=== PATIENT | male | born 1950 | race American Indian/Alaskan Native ===

== ENCOUNTER 2020-06-06 15:30 | Observation (INO) | payer MEDICARE ==
--- NOTE | 2020-06-06 15:59 | Event Note ---
ED Screening Note Date of service: 06/06/20 Time: 15:56 ED Screening Note: 79-year-old -[place]ian male with a past medical history of arthritis and BPH presents to the emergency room for a 1 week history of lower lip trembling and left hand trembling. Patient states he was seen at his dentist yesterday and they told him he may need to have that checked out. Patient states he called his primary care doctor who told him go to the nearest emergency room. This initial assessment/diagnostic orders/clinical plan/treatment(s) is/are subject to change based on patients health status, clinical progression and re- assessment by fellow clinical providers in the ED. Further treatment and workup at subsequent clinical providers discretion. Patient/guardian urged not to elope from the ED as their condition may be serious if not clinically assessed and managed. Initial orders include:
--- NOTE | 2020-06-06 16:54 | Cat Scan Report ---
CT head/brain wo con INDICATION / CLINICAL INFORMATION: 69 years Male; Neurological deficits. TECHNIQUE: Routine CT head without contrast. All CT scans at this location are performed using CT dos e reduction for ALARA by means of automated exposure control. COMPARISON: None. FINDINGS: BRAIN / INTRACRANIAL CONTENTS: No acute hemorrhage, mass effect, midline shift, hydrocephalus, or acu te, large territorial infarct. Mild cerebral and cerebellar atrophy. No significant white matter abno rmality seen. CRANIOCERVICAL JUNCTION: No significant abnormality. ORBITS: No significant abnormality of visualized orbits. SINUSES / MASTOIDS: Minimal mucosal thickening seen in the mastoids. ADDITIONAL FINDINGS: None. IMPRESSION: 1. No focal mass, hemorrhage, hydrocephalus, or acute, large territorial infarct. Signer Name: Conrad Ann MD, III Signed: 06/06/2020 4:50 PM Workstation Name: [id number]
[2020-06-06 17:00] LABS: Basophils % (Auto) 0.6 % (0.0-1.8); Eosinophils # (Auto) 0.1 K/mm3 (0.0-0.4); Eosinophils % (Auto) 2.1 % (0.0-4.3); Hemoglobin 15.5 gm/dl (11.8-15.2); Lymphocytes % (Auto) 31.7 % (13.4-35.0); Mean Corpuscular HGB Conc 34 % (32-34); Mean Corpuscular Volume 91 fl (84-94); Monocytes # (Auto) 0.6 K/mm3 (0.0-0.8); Monocytes % (Auto) 9.4 % (0.0-7.3); Red Blood Count 5.08 M/mm3 (3.65-5.03)
[2020-06-06 17:03] LABS: Platelet Count 131 K/mm3 (140-440)
[2020-06-06 17:16] LABS: INR 0.98 (0.87-1.13)
[2020-06-06 17:17] LABS: Partial Thromboplastin Time 30.3 Sec. (24.2-36.6)
[2020-06-06 20:46] LABS: Bilirubin,Urine NEG (Negative); Blood,Urine NEG (Negative); Color,Urine Straw (Yellow); Protein,Urine <15 mg/dL mg/dL (Negative); Urobilinogen,Urine < 2.0 mg/dL (<2.0); WBC,Urine < 1.0 /HPF (0.0-6.0)
--- NOTE | 2020-06-07 00:27 | Emergency Department Report ---
ED Neuro Deficit HPI - General Chief Complaint: Neuro Symptoms/Deficit Stated Complaint: POSS CVA Time Seen by Provider: 06/07/20 00:24 Source: patient Mode of arrival: Ambulatory Limitations: No Limitations - History of Present Illness Initial Comments: Patient is a 69-year-old male that presents emergency room with complaints of left-sided facial droop, left-sided weakness, abnormal gait and balance issues, left arm twitching and left facial twitching. Patient states his symptoms started 2 days ago. Patient states he saw his primary care yesterday morning and his primary care recommended he come to the hospital to be evaluated for stroke. Patient denies chest pain or shortness of breath. Patient states that his left-sided facial droop and left-sided weakness have improved. Patient states that his facial twitching and left arm twitching and balance issues have continued. Patient states that his symptoms are better with rest. Patient states his symptoms are worse with exertion. Patient denies recent travel. Patient denies recent international travel. Patient denies exposure to the novel coronavirus. Patient denies sick contacts. Patient denies fever and chills. Patient denies cough. Patient denies diarrhea. Patient denies coming in contact with anybody with symptoms of the novel coronavirus. -: Sudden - Related Data Allergies/Adverse Reactions: Allergies Allergy/AdvReac Type Severity Reaction Status Date / Time No Known Allergies Allergy Unverified 06/06/20 15:36 ED Review of Systems ROS: Stated complaint: POSS CVA Other details as noted in HPI Constitutional: weakness. denies: chills, fever Eyes: denies: eye pain, eye discharge, vision change ENT: denies: ear pain, throat pain Respiratory: denies: cough, shortness of breath, wheezing Cardiovascular: denies: chest pain, palpitations Endocrine: no symptoms reported Gastrointestinal: denies: abdominal pain, nausea, diarrhea Genitourinary: denies: urgency, dysuria Musculoskeletal: denies: back pain, joint swelling, arthralgia Skin: denies: rash, lesions Neurological: as per HPI, weakness, abnormal gait. denies: headache, paresthesias Psychiatric: denies: anxiety, depression Hematological/Lymphatic: denies: easy bleeding, easy bruising ED Past Medical Hx - Past Medical History Previous Medical History?: Yes Hx Arthritis: Yes Additional medical history: BPH - Surgical History Past Surgical History?: No - Family History Family history: no significant - Social History Smoking Status: Never Smoker Substance Use Type: None ED Neuro Physical Exam - General Limitations: No Limitations General appearance: alert, in no apparent distress Suspected Stroke: No - Head Head exam: Present: atraumatic, normocephalic - Eye Eye exam: Present: normal appearance - ENT ENT exam: Present: mucous membranes moist - Neck Neck exam: Present: normal inspection - Respiratory Respiratory exam: Present: normal lung sounds bilaterally. Absent: respiratory distress - Cardiovascular Cardiovascular Exam: Present: regular rate, normal rhythm. Absent: systolic murmur, diastolic murmur, rubs, gallop - GI/Abdominal GI/Abdominal exam: Present: soft, normal bowel sounds - Rectal Rectal exam: Present: deferred - Extremities Exam Extremities exam: Present: normal inspection - Back Exam Back exam: Present: normal inspection - Neurological Exam Neurological exam: Present: alert, oriented X3 - NIHSS Assessment Interval: Baseline 1a. Level of Consciousness: alert/keenly responsive - Psychiatric Psychiatric exam: Present: normal affect, normal mood - Skin Skin exam: Present: warm, dry, intact, normal color. Absent: rash ED Course Vital Signs 06/06/20 15:38 Temperature 98.1 F Pulse Rate 80 Respiratory 18 Rate Blood Pressure 137/74 [Right] O2 Sat by Pulse 98 Oximetry - Reevaluation(s) Reevaluation #1: I discussed all results with patient. I discussed plan of care with patient. Patient agrees with plan of care and admission. Patient to be admitted to the hospitalist service. 06/07/20 00:34 - Consultations Consultation #1: I discussed case with neurology and neurology recommends a routine admission and does not recommend further imaging. 06/07/20 00:25 I discussed the case with Dr. Perera. Dr. Perera recommends admission and MRI in the morning And stroke work-up. 06/07/20 01:39 Consultation #2: Hospitalist consulted for admission. Hospitalist to admit patient. 06/07/20 00:35 - Lab Data Result diagrams: 06/06/20 16:26 Lab Results 06/06/20 06/06/20 06/06/20 Range/Units 16:26 16:26 Unknown WBC 6.4 (4.5-11.0) K/mm3 RBC 5.08 H (3.65-5.03) M/mm3 Hgb 15.5 H (11.8-15.2) gm/dl Hct 46.0 H (35.5-45.6) % MCV 91 (84-94) fl MCH 30 (28-32) pg MCHC 34 (32-34) % RDW 14.0 (13.2-15.2) % Plt Count 131 L (140-440) K/mm3 Lymph % (Auto) 31.7 (13.4-35.0) % [place] % (Auto) 9.4 H (0.0-7.3) % Eos % (Auto) 2.1 (0.0-4.3) % Baso % (Auto) 0.6 (0.0-1.8) % Lymph # (Auto) 2.0 (1.2-5.4) K/mm3 [place] # (Auto) 0.6 (0.0-0.8) K/mm3 Eos # (Auto) 0.1 (0.0-0.4) K/mm3 Baso # (Auto) 0.0 (0.0-0.1) K/mm3 Seg Neutrophils % 56.2 (40.0-70.0) % Seg Neutrophils # 3.6 (1.8-7.7) K/mm3 PT 12.8 (12.2-14.9) Sec. INR 0.98 (0.87-1.13) APTT 30.3 (24.2-36.6) Sec. Urine Color Straw (Yellow) Urine Turbidity Clear (Clear) Urine pH 6.0 (5.0-7.0) Ur Specific [place] 1.009 (1.003-1.030) Urine Protein <15 mg/dl (Negative) mg/dL Urine Glucose (UA) Neg (Negative) mg/dL Urine Ketones Neg (Negative) mg/dL Urine Blood Neg (Negative) Urine Nitrite Neg (Negative) Urine Bilirubin Neg (Negative) Urine Urobilinogen < 2.0 (<2.0) mg/dL Ur Leukocyte Esterase Neg (Negative) Urine WBC (Auto) < 1.0 (0.0-6.0) /HPF Urine RBC (Auto) 2.0 (0.0-6.0) /HPF - Radiology Data Radiology results: report reviewed CT head/brain wo con INDICATION / CLINICAL INFORMATION: 69 years Male; Neurological deficits. TECHNIQUE: Routine CT head without contrast. All CT scans at this location are performed using CT dose reduction for ALARA by means of automated exposure control. COMPARISON: None. FINDINGS: BRAIN / INTRACRANIAL CONTENTS: No acute hemorrhage, mass effect, midline shift, hydrocephalus, or acute, large territorial infarct. Mild cerebral and cerebellar atrophy. No significant white matter abnormality seen. CRANIOCERVICAL JUNCTION: No significant abnormality. ORBITS: No significant abnormality of visualized orbits. SINUSES / MASTOIDS: Minimal mucosal thickening seen in the mastoids. ADDITIONAL FINDINGS: None. IMPRESSION: 1. No focal mass, hemorrhage, hydrocephalus, or acute, large territorial infarct. - Medical Decision Making Patient is a 69-year-old male that presents emergency room with complaints of abnormal gait, balance issue, left-sided weakness and left-sided facial droop and left hand twitch. Patient states that his left-sided weakness has improved. Patient states his symptoms started 2 days ago. After initial evaluation, I discussed the case with our neurologist and they recommended a routine admission and no other emergency room imaging. Patient had labs done which were essentially unremarkable. Patient head CT was negative. Patient admitted to the hospital service for further evaluation treatment. - Differential Diagnosis CVA, weakness, TIA, gait problems, tremors, electrolyte imbalance Critical Care Time: Yes Critical care time in (mins) excluding proc time.: 35 Critical care attestation.: If time is entered above; I have spent that time in minutes in the direct care of this critically ill patient, excluding procedure time. Critical Care Time: 35 minutes ED Disposition Clinical Impression: Abnormal gait, Balance problem, Left-sided weakness Disposition: 09 OP ADMIT IP TO THIS HOSP Is pt being admited?: No Does the pt Need Aspirin: No Condition: Stable Time of Disposition: 00:35
[2020-06-07] MEDS ORDERED: ASPIRIN 325 MG TAB PO ONE (00:37)
[2020-06-07] MEDS ORDERED: MAGNESIUM HYDROXIDE (MOM) ORAL LIQD UDC PO PRN ×2 (00:44)
[2020-06-07] MEDS ORDERED: ACETAMINOPHEN 325 MG TAB PO PRN ×2 (00:44)
[2020-06-07] MEDS ORDERED: METOCLOPRAMIDE 10 MG TAB PO PRN (00:44)
[2020-06-07] MEDS ORDERED: PROMETHAZINE 25 MG RECT SUPP PR PRN (00:44)
[2020-06-07] MEDS ORDERED: MORPHINE 2 MG/1 ML INJ IV PRN (00:44)
[2020-06-07] MEDS ORDERED: ONDANSETRON 4 MG/2 ML INJ IV PRN ×2 (00:44)
--- NOTE | 2020-06-07 01:02 | History and Physical Report ---
History of Present Illness Date of examination: 06/07/20 Date of admission: 06/07/2020 Chief complaint: Left Sided Weakness. History of present illness: 69-year-old -[place]inese male with known history of BPH presented to the emergency room today complaining of left-sided facial droop, left-sided weakness, numbness, twitching and tingling in the left upper extremity which has been ongoing over the past 2 days. He was seen by his primary care physician about 24 hours ago and he was encouraged to report to the emergency room for further evaluation. Indicates his left sided facial droop and left-sided weakness has improved. He continues to have some twitching in his left upper extremity and difficulty with his balance. Patient denies any headache or dizziness, no nausea vomiting, no fever or chills, no chest pain or shortness of breath, no hematuria or dysuria. Patient denies any sick contacts and no recent travel. Patient denies any contact with anyone with COVID-19. Work-up in the emergency room today CT scan of the head was unremarkable. Neurologist on-call was consulted by the ER physician and recommendation was to work patient up for possible CVA. Past History Past Medical History: arthritis, other (BPH) Past Surgical History: No surgical history Social history: no significant social history Family history: no significant family history Medications and Allergies Allergies Allergy/AdvReac Type Severity Reaction Status Date / Time No Known Allergies Allergy Unverified 06/06/20 15:36 Active Meds: Active Medications Acetaminophen (Acetaminophen 325 Mg Tab) 650 mg PO Q4H PRN PRN Reason: Pain MILD(1-3)/Fever >100.5/CHAUDHARY Acetaminophen (Acetaminophen 325 Mg Tab) 650 mg PO Q4H PRN PRN Reason: Pain, Mild (1-3) Aspirin (Aspirin 325 Mg Tab) 325 mg PO QDAY FARIDEH Atorvastatin Calcium (Atorvastatin 40 Mg Tab) 40 mg PO QHS FARIDEH Bisacodyl (Bisacodyl 10 Mg Rect Supp) 10 mg [place] QDAY PRN PRN Reason: Constipation Heparin Sodium (Porcine) (Heparin 5,000 Unit/1 Ml Vial) 5,000 unit SUB-Q Q8HR FARIDEH Magnesium Hydroxide (Magnesium Hydroxide (Mom) Oral Liqd Udc) 30 ml PO Q4H PRN PRN Reason: Constipation Magnesium Hydroxide (Magnesium Hydroxide (Mom) Oral Liqd Udc) 30 ml PO Q4H PRN PRN Reason: Constipation Metoclopramide HCl (Metoclopramide 10 Mg Tab) 10 mg PO Q6H PRN PRN Reason: Nausea And Vomiting Morphine Sulfate (Morphine 2 Mg/1 Ml Inj) 2 mg IV Q4H PRN PRN Reason: Pain, Moderate (4-6) Ondansetron HCl (Ondansetron 4 Mg/2 Ml Inj) 4 mg IV Q8H PRN PRN Reason: Nausea And Vomiting Ondansetron HCl (Ondansetron 4 Mg/2 Ml Inj) 4 mg IV Q8H PRN PRN Reason: Nausea And Vomiting Promethazine HCl (Promethazine 25 Mg Rect Supp) 25 mg [place] Q6H PRN PRN Reason: Nausea And Vomiting Sodium Chloride (Sodium Chloride 0.9% 10 Ml Flush Syringe) 10 ml IV BID FARIDEH Sodium Chloride (Sodium Chloride 0.9% 10 Ml Flush Syringe) 10 ml IV PRN PRN PRN Reason: LINE FLUSH Sodium Chloride (Sodium Chloride 0.9% 10 Ml Flush Syringe) 10 ml INJ PRN PRN PRN Reason: LINE FLUSH Review of Systems Constitutional: no fever, no chills Ears, nose, mouth and throat: no nasal congestion, no sore throat Cardiovascular: no chest pain, no palpitations Respiratory: no cough, no shortness of breath Gastrointestinal: no abdominal pain, no nausea, no vomiting, no diarrhea Genitourinary Male: no dysuria, no hematuria, no flank pain Musculoskeletal: no neck pain, no low back pain Integumentary: no rash, no pruritis Neurological: gait dysfunction, no headaches, no confusion Psychiatric: no anxiety, no depression Exam - Constitutional Vitals: Temp Pulse Resp BP Pulse Ox 98.1 F 80 18 137/74 98 06/06/20 15:38 06/06/20 15:38 06/06/20 15:38 06/06/20 15:38 06/06/20 15:38 General appearance: Present: no acute distress, well-nourished, other (No facial asymmetry) - EENT Eyes: Present: PERRL, EOM intact. Absent: scleral icterus ENT: hearing intact, clear oral mucosa, dentition normal - Neck Neck: Present: supple, normal ROM - Respiratory Respiratory effort: normal Respiratory: bilateral: CTA - Cardiovascular Rhythm: regular Heart Sounds: Present: S1 & S2. Absent: gallop, systolic murmur, diastolic murmur, rub - Extremities Extremities: no ischemia, pulses intact, pulses symmetrical, No edema, normal temperature, normal color, Full ROM Peripheral Pulses: within normal limits - Abdominal General gastrointestinal: Present: soft, non-tender, non-distended, normal bowel sounds. Absent: mass - Integumentary Integumentary: Present: clear, warm, dry - Musculoskeletal Musculoskeletal: strength equal bilaterally - Psychiatric Psychiatric: appropriate mood/affect, intact judgment & insight, memory intact, cooperative - Neurologic Neurologic: CNII-XII intact, no focal deficits, moves all extremities Results - Labs CBC & Chem 7: 06/06/20 16:26 Labs: Abnormal lab results 06/06/20 Range/Units 16:26 RBC 5.08 H (3.65-5.03) M/mm3 Hgb 15.5 H (11.8-15.2) gm/dl Hct 46.0 H (35.5-45.6) % Plt Count 131 L (140-440) K/mm3 [place] % (Auto) 9.4 H (0.0-7.3) % Assessment and Plan - Patient Problems (1) Left-sided weakness Current Visit: Yes Status: Acute Plan to address problem: Patient admitted and placed on telemetry. Will place patient on daily aspirin and statin. Patient will be scheduled for MRI of the brain, echocardiogram and carotid Doppler. We will place a consult to neurology for evaluation for possible CVA. We will also place consult to physical therapy for evaluation. (2) DVT prophylaxis Current Visit: Yes Status: Acute Plan to address problem: Patient placed on subcutaneous heparin. (3) Full code status Current Visit: Yes Status: Acute
--- NOTE | 2020-06-07 01:45 | Consultation ---
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 L hand (thumb and 5thdigit shaking when relaxes and posture and apparent left ankle cogwheeling/rigidity. Parkinsonism sign noted (masked facies, somewhat bradykinetic). r/o BG TIA vs stroke vs Parkinsons disease CT HEAD: Showed No Acute Hemorrhage or Acute Core Infarct Metrics: [facility] Notification Time: 06/07/2020 00:16:37 Stamp Time: 06/07/2020 00:17:43 Callback Response Time: 06/07/2020 01:14:47 Telephone Response Time: 06/07/2020 00:23:00 Video Start Time: 06/07/2020 01:17:00 Video End Time: 06/07/2020 01:43:06 Our recommendations are outlined below. Recommendations: Initiate Aspirin 325 MG Daily Imaging Studies: MRI Head Without Contrast Therapies: Physical Therapy, Occupational Therapy, Speech Therapy Assessment When Applicable Other WorkUp: Check CMP Disposition: Neurology Follow Up Recommended Sign Out: Discussed with Emergency Department Provider Chief Complaint: left sided weakness History of Present Illness: Patient is a 70 year old Male. 70 year old man with past medical history of arthritis on her left side (diagnosed via a scan incidentally) and BPH p/w w several days history of left hand (thumb and 5th digit fingers) and left corner of the mouth trembling and difficulty walking and balance. He does not smoke or drink. He uses a cane at times. His mom had trembling in her 90s. Past Medical History: There is NO history of Hypertension There is NO history of Diabetes Mellitus There is NO history of Hyperlipidemia There is NO history of Atrial Fibrillation There is NO history of Coronary Artery Disease There is NO history of Stroke Anticoagulant use: No Antiplatelet use: No Examination: BP(137/74), Pulse(80), Blood Glucose(wbc 15.5 ua neg cmp pending) 1A: Level of Consciousness - Alert; keenly responsive + 0 1B: Ask Month and Age - Both Questions Right + 0 1C: Blink Eyes & Squeeze Hands - Performs Both Tasks + 0 2: Test Horizontal Extraocular Movements - Normal + 0 3: Test Visual Cheng - No Visual Loss + 0 4: Test Facial Palsy (Use Grimace if Obtunded) - Normal symmetry + 0 5A: Test Left Arm Motor Drift - No Drift for 10 Seconds + 0 5B: Test Right Arm Motor Drift - No Drift for 10 Seconds + 0 6A: Test Left Leg Motor Drift - No Drift for 5 Seconds + 0 6B: Test Right Leg Motor Drift - No Drift for 5 Seconds + 0 7: Test Limb Ataxia (FNF/Heel-Hanley) - No Ataxia + 0 8: Test Sensation - Normal; No sensory loss + 0 9: Test Language/Aphasia - Normal; No aphasia + 0 10: Test Dysarthria - Normal + 0 11: Test Extinction/Inattention - No abnormality + 0 NIHSS Score: 0 Due to the immediate potential for life-threatening deterioration due to underlying acute neurologic illness, I spent 26 minutes providing critical care. This time includes time for face to face visit via telemedicine, review of medical records, imaging studies and discussion of findings with providers, the patient and/or family. Dr Caron Mcbride [facility] Case [id number] Past History Past Medical History: arthritis, other (BPH) Past Surgical History: No surgical history Social history: no significant social history Family history: no significant family history Medications and Allergies Allergies Allergy/AdvReac Type Severity Reaction Status Date / Time No Known Allergies Allergy Unverified 06/06/20 15:36 Active Meds: Active Medications Acetaminophen (Acetaminophen 325 Mg Tab) 650 mg PO Q4H PRN PRN Reason: Pain MILD(1-3)/Fever >100.5/CHAUDHARY Aspirin (Aspirin 325 Mg Tab) 325 mg PO QDAY FARIDEH Atorvastatin Calcium (Atorvastatin 40 Mg Tab) 40 mg PO QHS FARIDEH Bisacodyl (Bisacodyl 10 Mg Rect Supp) 10 mg [place] QDAY PRN PRN Reason: Constipation Heparin Sodium (Porcine) (Heparin 5,000 Unit/1 Ml Vial) 5,000 unit SUB-Q Q8HR S [place] Magnesium Hydroxide (Magnesium Hydroxide (Mom) Oral Liqd Udc) 30 ml PO Q4H PRN PRN Reason: Constipation Metoclopramide HCl (Metoclopramide 10 Mg Tab) 10 mg PO Q6H PRN PRN Reason: Nausea And Vomiting Morphine Sulfate (Morphine 2 Mg/1 Ml Inj) 2 mg IV Q4H PRN PRN Reason: Pain, Moderate (4-6) Ondansetron HCl (Ondansetron 4 Mg/2 Ml Inj) 4 mg IV Q8H PRN PRN Reason: Nausea And Vomiting Promethazine HCl (Promethazine 25 Mg Rect Supp) 25 mg [place] Q6H PRN PRN Reason: Nausea And Vomiting Sodium Chloride (Sodium Chloride 0.9% 10 Ml Flush Syringe) 10 ml IV BID FARIDEH Sodium Chloride (Sodium Chloride 0.9% 10 Ml Flush Syringe) 10 ml IV PRN PRN PRN Reason: LINE FLUSH Exam - Constitutional Vitals: Temp Pulse Resp BP Pulse Ox 98.1 F 80 18 137/74 98 06/06/20 15:38 06/06/20 15:38 06/06/20 15:38 06/06/20 15:38 06/06/20 15:38 Results - Labs CBC & Chem 7: 06/06/20 16:26 Labs: Abnormal lab results 06/06/20 Range/Units 16:26 RBC 5.08 H (3.65-5.03) M/mm3 Hgb 15.5 H (11.8-15.2) gm/dl Hct 46.0 H (35.5-45.6) % Plt Count 131 L (140-440) K/mm3 [place] % (Auto) 9.4 H (0.0-7.3) %
[2020-06-07] MEDS: HEPARIN 5,000 UNIT/1 ML VIAL SUB-Q SCH ×3 (06:37→22:30)
--- NOTE | 2020-06-07 09:27 | Magnetic Resonance Report ---
MR brain wo con INDICATION / CLINICAL INFORMATION: 69 years Male; stroke. TECHNIQUE: Multiplanar, multisequence MR images of the brain were obtained. 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 Otherwise, no acute hemorrhage, mass effect, midline shift, hydrocephalus, or acute, large territori al infarct. Mild, diffuse cerebral atrophy. Minimal, nonspecific white matter disease noted. CRANIOCERVICAL JUNCTION: No significant abnormality. VASCULAR FLOW-VOIDS: No significant abnormality. ORBITS: No significant abnormality of visualized orbits. SINUSES / MASTOIDS: Minimal mucosal thickening in the ethmoids and mastoids. ADDITIONAL FINDINGS: None. IMPRESSION: 1. No focal mass, hemorrhage, hydrocephalus, or acute ischemia. Signer Name: Conrad Ann MD, III Signed: 06/07/2020 9:22 AM Workstation Name: [id number]
--- NOTE | 2020-06-07 09:53 | Progress Note ---
Assessment and Plan Assessment and plan: Acute CVA. The patient reported several day history of left-sided hand numbness, left facial droop along with ataxia. CT scan of the head shows no acute hemorrhage or infarct. MRI brain pending. Follow-up echocardiogram. Continue aspirin and statin for secondary prevention. Await PT/OT evaluation. BPH. Osteoarthritis. History Interval history: No new issues overnight. Hospitalist Physical - Constitutional Vitals: Temp Pulse Resp BP Pulse Ox 98.2 F 65 18 116/68 96 06/07/20 07:54 06/07/20 07:54 06/07/20 07:54 06/07/20 07:54 06/07/20 07:54 General appearance: Present: no acute distress, well-nourished, other (No facial asymmetry) - EENT Eyes: Present: PERRL, EOM intact ENT: hearing intact, clear oral mucosa, dentition normal - Neck Neck: Present: supple, normal ROM - Respiratory Respiratory effort: normal Respiratory: bilateral: CTA - Cardiovascular Rhythm: regular Heart Sounds: Present: S1 & S2. Absent: gallop, rub - Extremities Extremities: no ischemia, No edema, Full ROM - Abdominal General gastrointestinal: soft, non-tender, non-distended, normal bowel sounds - Integumentary Integumentary: Present: clear, warm, dry - Neurologic Neurologic: CNII-XII intact, moves all extremities Results - Labs CBC & Chem 7: 06/06/20 16:26 Labs: Laboratory Last Values WBC 6.4 K/mm3 (4.5-11.0) 06/06/20 16:26 RBC 5.08 M/mm3 (3.65-5.03) H 06/06/20 16:26 Hgb 15.5 gm/dl (11.8-15.2) H 06/06/20 16:26 Hct 46.0 % (35.5-45.6) H 06/06/20 16:26 MCV 91 fl (84-94) 06/06/20 16:26 MCH 30 pg (28-32) 06/06/20 16:26 MCHC 34 % (32-34) 06/06/20 16:26 RDW 14.0 % (13.2-15.2) 06/06/20 16:26 Plt Count 131 K/mm3 (140-440) L 06/06/20 16:26 Lymph % (Auto) 31.7 % (13.4-35.0) 06/06/20 16:26 [place] % (Auto) 9.4 % (0.0-7.3) H 06/06/20 16:26 Eos % (Auto) 2.1 % (0.0-4.3) 06/06/20 16:26 Baso % (Auto) 0.6 % (0.0-1.8) 06/06/20 16:26 Lymph # (Auto) 2.0 K/mm3 (1.2-5.4) 06/06/20 16:26 [place] # (Auto) 0.6 K/mm3 (0.0-0.8) 06/06/20 16:26 Eos # (Auto) 0.1 K/mm3 (0.0-0.4) 06/06/20 16:26 Baso # (Auto) 0.0 K/mm3 (0.0-0.1) 06/06/20 16:26 Seg Neutrophils % 56.2 % (40.0-70.0) 06/06/20 16:26 Seg Neutrophils # 3.6 K/mm3 (1.8-7.7) 06/06/20 16:26 PT 12.8 Sec. (12.2-14.9) 06/06/20 16:26 INR 0.98 (0.87-1.13) 06/06/20 16:26 APTT 30.3 Sec. (24.2-36.6) 06/06/20 16:26 Urine Color Straw (Yellow) 06/06/20 Unknown Urine Turbidity Clear (Clear) 06/06/20 Unknown Urine pH 6.0 (5.0-7.0) 06/06/20 Unknown Ur Specific [place] 1.009 (1.003-1.030) 06/06/20 Unknown Urine Protein <15 mg/dl mg/dL (Negative) 06/06/20 Unknown Urine Glucose (UA) Neg mg/dL (Negative) 06/06/20 Unknown Urine Ketones Neg mg/dL (Negative) 06/06/20 Unknown Urine Blood Neg (Negative) 06/06/20 Unknown Urine Nitrite Neg (Negative) 06/06/20 Unknown Urine Bilirubin Neg (Negative) 06/06/20 Unknown Urine Urobilinogen < 2.0 mg/dL (<2.0) 06/06/20 Unknown Ur Leukocyte Esterase Neg (Negative) 06/06/20 Unknown Urine WBC (Auto) < 1.0 /HPF (0.0-6.0) 06/06/20 Unknown Urine RBC (Auto) 2.0 /HPF (0.0-6.0) 06/06/20 Unknown Gonzalez/IV: Voiding Method Urinal IV Catheter Type [left forearm Peripheral IV ] Active Medications - Current Medications Current Medications: Generic Name Dose Route Start Last Admin Trade Name Freq PRN Reason Stop Dose Admin Acetaminophen 650 mg 06/07/20 00:44 Acetaminophen 325 Mg Tab PO Q4H PRN Pain MILD(1-3)/Fever >100.5/CHAUDHARY Aspirin 325 mg 06/07/20 10:00 Aspirin 325 Mg Tab PO QDAY [facility] Atorvastatin Calcium 40 mg 06/07/20 22:00 Atorvastatin 40 Mg Tab PO QHS FARIDEH Bisacodyl 10 mg 06/07/20 00:44 Bisacodyl 10 Mg Rect Supp UT QDAY PRN Constipation Heparin Sodium (Porcine) 5,000 unit 06/07/20 06:00 06/07/20 06:37 Heparin 5,000 Unit/1 Ml Vial SUB-Q 5,000 unit Q8HR [facility] Administration Magnesium Hydroxide 30 ml 06/07/20 00:44 Magnesium Hydroxide (Mom) Oral Liqd Udc PO Q4H PRN Constipation Metoclopramide HCl 10 mg 06/07/20 00:44 Metoclopramide 10 Mg Tab PO Q6H PRN Nausea And Vomiting Morphine Sulfate 2 mg 06/07/20 00:44 Morphine 2 Mg/1 Ml Inj IV Q4H PRN Pain, Moderate (4-6) Ondansetron HCl 4 mg 06/07/20 00:44 Ondansetron 4 Mg/2 Ml Inj IV Q8H PRN Nausea And Vomiting Promethazine HCl 25 mg 06/07/20 00:44 Promethazine 25 Mg Rect Supp UT Q6H PRN Nausea And Vomiting Sodium Chloride 10 ml 06/07/20 10:00 Sodium Chloride 0.9% 10 Ml Flush Syringe IV BID FARIDEH Sodium Chloride 10 ml 06/07/20 00:44 Sodium Chloride 0.9% 10 Ml Flush Syringe IV PRN PRN LINE FLUSH
[2020-06-07] MEDS: ASPIRIN 325 MG TAB PO SCH (10:26)
[2020-06-07] MEDS: TAMSULOSIN 0.4 MG CAP PO SCH (20:47)
[2020-06-07] MEDS: MELOXICAM 7.5 MG TAB PO SCH ×2 (20:47→20:52)
[2020-06-08 03:55] VITALS: BP 114/74
[2020-06-08 05:31] LABS: Basophils # (Auto) 0.1 K/mm3 (0.0-0.1); Basophils % (Auto) 0.8 % (0.0-1.8); Eosinophils # (Auto) 0.2 K/mm3 (0.0-0.4); Eosinophils % (Auto) 3.3 % (0.0-4.3); Hematocrit 46.8 % (35.5-45.6); Hemoglobin 15.5 gm/dl (11.8-15.2); Lymphocytes # (Auto) 2.4 K/mm3 (1.2-5.4); Lymphocytes % (Auto) 37.1 % (13.4-35.0); Mean Corpuscular HGB Conc 33 % (32-34); Mean Corpuscular Volume 91 fl (84-94); Monocytes # (Auto) 0.5 K/mm3 (0.0-0.8); Monocytes % (Auto) 7.8 % (0.0-7.3); Red Blood Count 5.16 M/mm3 (3.65-5.03); Red Cell Distribution Width 13.9 % (13.2-15.2)
[2020-06-08 05:43] LABS: INR 0.99 (0.87-1.13)
[2020-06-08 05:47] LABS: BUN/Creatinine Ratio 19; Blood Urea Nitrogen 19 mg/dL (9-20); Calcium 10.1 mg/dL (8.4-10.2); Chol/HDL Ratio 3.17 %; HDL Cholesterol 58 mg/dL (40-59); Hemolysis Index 20; LDL Cholesterol,Direct 131 mg/dL (50-130)
[2020-06-08 05:54] LABS: Platelet Count 120 K/mm3 (140-440)
[2020-06-08] MEDS: HEPARIN 5,000 UNIT/1 ML VIAL SUB-Q SCH (06:05)
--- NOTE | 2020-06-08 08:30 | Discharge Summary ---
Providers - Providers Date of Admission: 06/07/20 00:37 Date of discharge: 06/08/20 Attending physician: HENRY PORTER 06/07/20 00:44 Consult to Physician [CONS] Routine Comment: Consulting Provider: SCOTTY DELCID Physician Instructions: Reason For Exam: Left sided weakness,facial droop R/O CVA Occupational Therapy Evaluate and Treat [CONS] Routine Comment: Reason For Exam: Neuro deficits Physical Therapy Evaluation and Treat [CONS] Routine Comment: Reason For Exam: Neuro deficits Primary care physician: JACQUARD LOOM CARPET WEAVER Hospitalization Reason for admission: CVA Condition: Stable Hospital course: 69-year-old -[place] male with known history of BPH presented to the emergency room complaining of left-sided facial droop, left-sided weakness, numbness, twitching and tingling in the left upper extremity and ataxia which had been ongoing over the past 2 days [employer]. He was seen by his primary care physician about 24 hours [employer] and he was encouraged to report to the emergency room for further evaluation. After arrival to the emergency room, his left sided facial droop and left-sided weakness had improved. Work-up in the emergency room revealed CT scan of the head that was unremarkable. The patient was seen by the telemetry neurologist who recommend the initiation of aspirin 325 mg daily an MRI of the head without contrast. MRI of the brain revealed no focal mass, hemorrhage, hydrocephalus or acute ischemia. Physical therapy evaluated the patient and felt patient had no needs. Patient will be discharged home on aspirin and statin for secondary prevention. Dedicated discharge time 35 minutes. Disposition: [id number] TO HOME OR SELFCARE Time spent for discharge: 35 - Discharge Diagnoses (1) Abnormal gait Status: Acute (2) Balance problem Status: Acute (3) Left-sided weakness Status: Acute (4) CVA (cerebral vascular accident) Status: Acute Core Measure Documentation - Palliative Care Palliative Care/ Comfort Measures: Not Applicable - Core Measures Any of the following diagnoses?: stroke - Stroke Discharge Requirements Statin for LDL = or >70 mg/dl on DC: Yes Anticoag for atrial fib/atrial flutter: Not Applicable Antithrombotic for ischemic stroke: Yes Exam - Constitutional Vitals: Temp Pulse Resp BP Pulse Ox 97.6 F 64 16 114/74 97 06/08/20 03:32 06/08/20 03:32 06/08/20 03:32 06/08/20 03:32 06/08/20 03:32 General appearance: Present: no acute distress, well-nourished - EENT Eyes: Present: PERRL ENT: hearing intact, clear oral mucosa - Neck Neck: Present: supple, normal ROM - Respiratory Respiratory effort: normal Respiratory: bilateral: CTA - Cardiovascular Heart Sounds: Present: S1 & S2. Absent: rub, click - Extremities Extremities: pulses symmetrical, No edema Peripheral Pulses: within normal limits - Abdominal General gastrointestinal: Present: soft, non-tender, non-distended, normal bowel sounds Male genitourinary: Present: normal - Integumentary Integumentary: Present: clear, warm, dry - Musculoskeletal Musculoskeletal: gait normal, strength equal bilaterally - Psychiatric Psychiatric: appropriate mood/affect, intact judgment & insight - Neurologic Neurologic: CNII-XII intact, moves all extremities Plan Activity: advance as tolerated Weight Bearing Status: Weight Bear as Tolerated Diet: low fat, low cholesterol, low salt Follow up with: RENAY HERMAN MD [Primary Care Provider] - 7 Days SCOTTY DELCID MD [Staff Physician] - 7 Days Prescriptions: Aspirin 325 mg PO QDAY #30 tablet Tamsulosin [Flomax] 1 cap PO QDAY #30 cap AtorvaSTATin [Lipitor] 40 mg PO QHS #30 tablet
[2020-06-08] MEDS: TAMSULOSIN 0.4 MG CAP PO SCH (10:04)
[2020-06-08] MEDS: MELOXICAM 7.5 MG TAB PO SCH (10:04)
[2020-06-08] MEDS: ASPIRIN 325 MG TAB PO SCH (10:04)
== END 2020-06-08 17:45 | disposition home or self-care (01) ==
LOC: ED 15:30 → 4A 06-07 00:37
PROVIDERS: ADMIT Internal Medicine Geriatric Medicine; ATTEND Hospitalist
DX: I63.9 Cerebral infarction, unspecified (principal); G45.9 Transient cerebral ischemic attack, unspecified; G20 Parkinson's disease; M62.81 Muscle weakness (generalized); R26.89 Other abnormalities of gait and mobility; M19.90 Unspecified osteoarthritis, unspecified site; N40.0 Benign prostatic hyperplasia without lower urinary tract symptoms; R29.700 NIHSS score 0; Z79.82 Long term (current) use of aspirin
CPT/HCPCS: 36415; 70450; 70551; 80048; 80061; 81001; 85025; 85610; 85730; 93306; 96372; 97161; 99291; A9270; G0378; J1644

== ENCOUNTER 2020-06-20 16:32 | Emergency (ER) | payer MEDICARE ==
[2020-06-20 17:45] VITALS: BP 156/87
--- NOTE | 2020-06-20 17:46 | Event Note ---
ED Screening Note Date of service: 06/20/20 Time: 17:45 ED Screening Note: Patient complains of 2 episodes of bright red blood in his stools today along with epigastric pain Denies nausea/vomiting/melena hematemesis/coffee-ground emesis History of PUD and recently started on aspirin and meloxicam Patient recently discharged from hospital This initial assessment/diagnostic orders/clinical plan/treatment(s) is/are subject to change based on patients health status, clinical progression and re- assessment by fellow clinical providers in the ED. Further treatment and workup at subsequent clinical providers discretion. Patient/guardian urged not to elope from the ED as their condition may be serious if not clinically assessed and managed. Initial orders include: labs CT
[2020-06-20 18:40] LABS: Bilirubin,Urine NEG (Negative); Blood,Urine NEG (Negative); Color,Urine Straw (Yellow); Protein,Urine <15 mg/dL mg/dL (Negative); Urobilinogen,Urine < 2.0 mg/dL (<2.0); WBC,Urine < 1.0 /HPF (0.0-6.0)
[2020-06-20 19:19] LABS: Basophils # (Auto) 0.1 K/mm3 (0.0-0.1); Basophils % (Auto) 0.5 % (0.0-1.8); Eosinophils # (Auto) 0.2 K/mm3 (0.0-0.4); Eosinophils % (Auto) 1.7 % (0.0-4.3); Hematocrit 45.4 % (35.5-45.6); Hemoglobin 15.1 gm/dl (11.8-15.2); Lymphocytes # (Auto) 2.1 K/mm3 (1.2-5.4); Lymphocytes % (Auto) 18.4 % (13.4-35.0); Mean Corpuscular HGB Conc 33 % (32-34); Mean Corpuscular Volume 92 fl (84-94); Monocytes # (Auto) 0.6 K/mm3 (0.0-0.8); Monocytes % (Auto) 5.6 % (0.0-7.3); Platelet Count 122 K/mm3 (140-440); Red Blood Count 4.96 M/mm3 (3.65-5.03); Red Cell Distribution Width 13.9 % (13.2-15.2)
[2020-06-20 19:44] LABS: INR 0.98 (0.87-1.13); Partial Thromboplastin Time 30.6 Sec. (24.2-36.6)
[2020-06-20 19:45] LABS: Alanine Aminotransferase 25 units/L (7-56); Albumin 4.2 g/dL (3.9-5); BUN/Creatinine Ratio 17; Blood Urea Nitrogen 15 mg/dL (9-20); Hemolysis Index 13
[2020-06-20] MEDS ORDERED: PANTOPRAZOLE 40 MG TAB PO ONE (21:00)
--- NOTE | 2020-06-20 21:00 | Emergency Department Report ---
ED General Adult HPI - General Chief complaint: GI Bleed Stated complaint: BLEEDING INSIDE STOMACH PUI?: No Time Seen by Provider: 06/20/20 17:41 Source: patient Mode of arrival: Ambulatory Limitations: No Limitations - History of Present Illness Initial comments: Mr. Lora is a pleasant 70-year-old -[place]ian male who comes to the ER today complaining of bright red blood in the toilet for the last 3 days. He has a history of GERD but he is not taking his Nexium. He was recently prescribed aspirin 325 for his atherosclerotic risk and meloxicam for his chronic pain. Patient has no epigastric pain he has had no heartburn. Patient states that he really did not have problems like this until the addition of the meloxicam with the 325 mg of aspirin. He states that he does not understand why the pharmacist allowed him to combine these medications. He does endorse hemorrhoids. The blood he reports is a small amount and bright red. He denies any dark tarry foul-smelling stools. He has no tachycardia or hypotension. Patient denies chest pain or shortness of breath. He has no fever or chills Patient denies any abdominal pain. He is asking if he can eat. He is nonill nontoxic appearing on exam. -: Gradual, days(s) Consistency: intermittent Improves with: none Worsens with: none Associated Symptoms: denies other symptoms - Related Data Previous Rx's Medication Instructions Recorded Last Taken Type AtorvaSTATin [Lipitor] 40 mg PO QHS #30 tablet 06/08/20 Unknown Rx Tamsulosin [Flomax] 0.4 mg PO QDAY capsule 06/08/20 Unknown Rx Phenylephrine HCl/[place] Butter 1 each RC DAILY PRN #5 supp.rect 06/20/20 Unknown Rx [Preparation H Suppository] Allergies Allergy/AdvReac Type Severity Reaction Status Date / Time No Known Allergies Allergy Unverified 06/06/20 15:36 ED Review of Systems ROS: Stated complaint: BLEEDING INSIDE STOMACH Other details as noted in HPI Comment: All other systems reviewed and negative ED Past Medical Hx - Past Medical History Previous Medical History?: Yes Hx Hypertension: Yes Hx Congestive Heart Failure: No Hx Diabetes: No Hx Deep Vein Thrombosis: No Hx Pulmonary Embolism: No Hx GERD: Yes Hx Liver Disease: No Hx Renal Disease: No Hx of Cancer: No Hx Sickle Cell Disease: No Hx Arthritis: Yes Hx Headaches / Migraines: No Hx Seizures: No Hx Kidney Stones: No Hx Psychiatric Treatment: No Hx Asthma: No Hx COPD: No Hx Tuberculosis: No Hx Dementia: No Hx HIV: No Additional medical history: BPH - Surgical History Past Surgical History?: No - Family History Family history: no significant - Social History Smoking Status: Former Smoker Substance Use Type: None - Medications Home Medications: Home Medications Medication Instructions Recorded Confirmed Last Taken Type AtorvaSTATin [Lipitor] 40 mg PO QHS #30 tablet 06/08/20 Unknown Rx Tamsulosin [Flomax] 0.4 mg PO QDAY capsule 06/08/20 Unknown Rx Phenylephrine HCl/[place] Butter 1 each RC DAILY PRN #5 supp.rect 06/20/20 Unknown Rx [Preparation H Suppository] ED Physical Exam - General Limitations: No Limitations General appearance: alert, in no apparent distress - Head Head exam: Present: atraumatic, normocephalic - Eye Eye exam: Present: normal appearance - ENT ENT exam: Present: mucous membranes moist - Neck Neck exam: Present: normal inspection - Respiratory Respiratory exam: Present: normal lung sounds bilaterally. Absent: respiratory distress - Cardiovascular Cardiovascular Exam: Present: regular rate, normal rhythm. Absent: systolic murmur, diastolic murmur, rubs, gallop - GI/Abdominal GI/Abdominal exam: Present: soft, normal bowel sounds - Rectal Rectal exam: Present: deferred - Extremities Exam Extremities exam: Present: normal inspection - Back Exam Back exam: Present: normal inspection - Neurological Exam Neurological exam: Present: alert, oriented X3 - Psychiatric Psychiatric exam: Present: normal affect, normal mood - Skin Skin exam: Present: warm, dry, intact, normal color. Absent: rash ED Course Vital Signs 06/20/20 17:35 Temperature 97.9 F Pulse Rate 71 Respiratory 20 Rate Blood Pressure 156/87 O2 Sat by Pulse 98 Oximetry ED Medical Decision Making - Lab Data Result diagrams: 06/20/20 18:59 06/20/20 18:59 - Medical Decision Making Vital Signs 06/20/20 17:35 Temperature 97.9 F Pulse Rate 71 Respiratory 20 Rate Blood Pressure 156/87 O2 Sat by Pulse 98 Oximetry Labs 06/20/20 06/20/20 06/20/20 18:12 18:59 18:59 WBC 11.6 H RBC 4.96 Hgb 15.1 Hct 45.4 MCV 92 MCH 30 MCHC 33 RDW 13.9 Plt Count 122 L Lymph % (Auto) 18.4 [place] % (Auto) 5.6 Eos % (Auto) 1.7 Baso % (Auto) 0.5 Lymph # (Auto) 2.1 [place] # (Auto) 0.6 Eos # (Auto) 0.2 Baso # (Auto) 0.1 Seg Neutrophils % 73.8 H Seg Neutrophils # 8.6 H PT 12.9 INR 0.98 APTT 30.6 Sodium Potassium Chloride Carbon Dioxide Anion Gap BUN Creatinine Estimated GFR BUN/Creatinine Ratio Glucose Calcium Total Bilirubin AST ALT Alkaline Phosphatase Total Protein Albumin Albumin/Globulin Ratio Lipase Urine Color Straw Urine Turbidity Clear Urine pH 7.0 Ur Specific [place] 1.010 Urine Protein <15 mg/dl Urine Glucose (UA) Neg Urine Ketones Neg Urine Blood Neg Urine Nitrite Neg Urine Bilirubin Neg Urine Urobilinogen < 2.0 Ur Leukocyte Esterase Neg Urine WBC (Auto) < 1.0 Urine RBC (Auto) 2.0 06/20/20 06/20/20 18:59 18:59 WBC RBC Hgb Hct MCV MCH MCHC RDW Plt Count Lymph % (Auto) [place] % (Auto) Eos % (Auto) Baso % (Auto) Lymph # (Auto) [place] # (Auto) Eos # (Auto) Baso # (Auto) Seg Neutrophils % Seg Neutrophils # PT INR APTT Sodium 138 Potassium 4.2 Chloride 102.2 Carbon Dioxide 28 Anion Gap 12 BUN 15 Creatinine 0.9 Estimated GFR > 60 BUN/Creatinine Ratio 17 Glucose 93 Calcium 10.0 Total Bilirubin 0.50 AST 20 ALT 25 Alkaline Phosphatase 73 Total Protein 7.2 Albumin 4.2 Albumin/Globulin Ratio 1.4 Lipase 26 Urine Color Urine Turbidity Urine pH Ur Specific [place] Urine Protein Urine Glucose (UA) Urine Ketones Urine Blood Urine Nitrite Urine Bilirubin Urine Urobilinogen Ur Leukocyte Esterase Urine WBC (Auto) Urine RBC (Auto) Labs noted. Hemoglobin stable from last ER visit. Patient has been in the ER over 5 hours and has had no bloody stools. Patient is asking to eat and is tolerating p.o. without difficulty Patient has been educated on the importance of taking his Nexium daily. I expla ined to him that this is not a medication that he can take as needed. I have also explained to the patient that he should not be taking aspirin and meloxicam. I told him he could take an enteric-coated aspirin for his risk factors and that he should stop his meloxicam. He has called his primary care who will be back in the office next week. I encouraged him to follow-up with his primary care to once again evaluate his hemoglobin. Patient verbalizes understanding. Patient being discharged home, ambulatory nonill and nontoxic appearing with normal vital signs. Critical care attestation.: If time is entered above; I have spent that time in minutes in the direct care of this critically ill patient, excluding procedure time. ED Disposition Clinical Impression: GERD (gastroesophageal reflux disease), Hemorrhoid Disposition: TO HOME OR SELFCARE Is pt being admited?: No Does the pt Need Aspirin: No Condition: Stable Instructions: Food Choices for Gastroesophageal Reflux Disease, Adult Additional Instructions: HIGH FIBER DIET STAY WELL HYDRATED TAKE YOUR NEXIUM EVERY DAY TAKE AN ENTERIC BABY ASPIRIN 81 MG A DAY NO MOTRIN OR IBRUPROFEN TYLENOL IS OK FOLLOW UP WITH YOUR PCP NEXT WEEK FOR RE CHECK YOUR HGB IS STABLE TODAY SUPPOSITORIES WE DISCUSSED FOR HEMORRHOIDS NO MELOXICAM Prescriptions: Phenylephrine HCl/[place] Butter [Preparation H Suppository] 1 each RC DAILY PRN #5 supp.rect PRN Reason: Pain , Severe (7-10) Referrals: MELANY RICHEY MD [Primary Care Provider] - 3-5 Days SHARI VINSON MD [Staff Physician] - 3-5 Days Forms: Accompanied Note Time of Disposition: 21:53
== END 2020-06-20 21:30 | disposition home or self-care (01) ==
LOC: ED 16:32
DX: K21.9 Gastro-esophageal reflux disease without esophagitis (principal); K64.9 Unspecified hemorrhoids; I10 Essential (primary) hypertension; M19.91 Primary osteoarthritis, unspecified site; Z87.891 Personal history of nicotine dependence; Z79.899 Other long term (current) drug therapy
CPT/HCPCS: 36415; 80053; 81001; 83690; 85025; 85610; 85730

== ENCOUNTER 2020-06-26 11:45 | Emergency (ER) | payer MEDICARE ==
--- NOTE | 2020-06-26 11:55 | Event Note ---
ED Screening Note ED Screening Note: sp mechanical fall this am fell on l hip now w pain does not tolerated meloxicam/nsaids due to hemorrhoids This initial assessment/diagnostic orders/clinical plan/treatment(s) is/are subject to change based on patients health status, clinical progression and re- assessment by fellow clinical providers in the ED. Further treatment and workup at subsequent clinical providers discretion. Patient/guardian urged not to elope from the ED as their condition may be serious if not clinically assessed and managed. Initial orders include: xr
--- NOTE | 2020-06-26 12:22 | XRay Report ---
INDICATION FOR STUDY: pain sp fall TECHNIQUE: AP and lateral views of the left hip was obtained. FINDINGS: The hip is well mineralized. Articular space is well maintained. No evidence of a dislocation. There is no evidence of fracture. There is no radiographic evidence of hip effusion. IMPRESSION: Normal examination of the hip. Signer Name: Scar Steen MD Signed: 06/26/2020 12:18 PM Workstation Name: [id number]
[2020-06-26] MEDS ORDERED: HYDROcodone/ACETAMINOPHEN 5-325 MG TAB PO ONE (14:13)
--- NOTE | 2020-06-26 14:17 | Emergency Department Report ---
ED General Adult HPI - General Chief complaint: Extremity Injury, Lower Stated complaint: LT LEG Time Seen by Provider: 06/26/20 11:54 Source: patient Mode of arrival: Ambulatory Limitations: Physical Limitation - History of Present Illness Initial comments: 70-year-old male presenting with chief complaint of left hip pain, sudden onset earlier today after he slipped and fell getting out of the shower. Denies any other injuries or complaints. Pain extends from the hip down to the knee but typically not beyond it is worse with movement and ambulation and better with rest. Denies any numbness or tingling. Pain is mild to moderate. - Related Data Previous Rx's Medication Instructions Recorded Last Taken Type AtorvaSTATin [Lipitor] 40 mg PO QHS #30 tablet 06/08/20 Unknown Rx Tamsulosin [Flomax] 0.4 mg PO QDAY capsule 06/08/20 Unknown Rx Phenylephrine HCl/[place] Butter 1 each RC DAILY PRN #5 supp.rect 06/20/20 Unknown Rx [Preparation H Suppository] Cyclobenzaprine [Flexeril] 10 mg PO TID PRN #15 tablet 06/26/20 Unknown Rx Allergies Allergy/AdvReac Type Severity Reaction Status Date / Time No Known Allergies Allergy Verified 06/26/20 11:52 ED Review of Systems ROS: Stated complaint: LT LEG Other details as noted in HPI Comment: All other systems reviewed and negative Musculoskeletal: as per HPI ED Past Medical Hx - Past Medical History Hx Hypertension: Yes Hx Congestive Heart Failure: No Hx Diabetes: No Hx Deep Vein Thrombosis: No Hx Pulmonary Embolism: No Hx GERD: Yes Hx Liver Disease: No Hx Renal Disease: No Hx Sickle Cell Disease: No Hx Arthritis: Yes Hx Headaches / Migraines: No Hx Seizures: No Hx Kidney Stones: No Hx Psychiatric Treatment: No Hx Asthma: No Hx COPD: No Hx Tuberculosis: No Hx Dementia: No Hx HIV: No Additional medical history: BPH - Social History Smoking Status: Never Smoker Substance Use Type: None - Medications Home Medications: Home Medications Medication Instructions Recorded Confirmed Last Taken Type AtorvaSTATin [Lipitor] 40 mg PO QHS #30 tablet 06/08/20 Unknown Rx Tamsulosin [Flomax] 0.4 mg PO QDAY capsule 06/08/20 Unknown Rx Phenylephrine HCl/[place] Butter 1 each RC DAILY PRN #5 supp.rect 06/20/20 Unknown Rx [Preparation H Suppository] Cyclobenzaprine [Flexeril] 10 mg PO TID PRN #15 tablet 06/26/20 Unknown Rx ED Physical Exam - General Limitations: Physical Limitation General appearance: alert, in no apparent distress - Head Head exam: Present: atraumatic, normocephalic - Eye Eye exam: Present: normal appearance - ENT ENT exam: Present: mucous membranes moist - Neck Neck exam: Present: normal inspection - Respiratory Respiratory exam: Present: normal lung sounds bilaterally. Absent: respiratory distress - Cardiovascular Cardiovascular Exam: Present: regular rate, normal rhythm. Absent: systolic murmur, diastolic murmur, rubs, gallop - GI/Abdominal GI/Abdominal exam: Present: soft, normal bowel sounds - Rectal Rectal exam: Present: deferred - Extremities Exam Extremities exam: Present: normal inspection, other (Tenderness around the left hip extending down toward the knee but not beyond, intact pulses distally, normal sensation, full range of motion and ambulatory.) - Back Exam Back exam: Present: normal inspection. Absent: paraspinal tenderness, vertebral tenderness - Neurological Exam Neurological exam: Present: alert, oriented X3 - Psychiatric Psychiatric exam: Present: normal affect, normal mood - Skin Skin exam: Present: warm, dry, intact, normal color. Absent: rash ED Course Vital Signs 06/26/20 11:55 Temperature 98.0 F Pulse Rate 89 Respiratory 18 Rate Blood Pressure 155/74 O2 Sat by Pulse 98 Oximetry ED Medical Decision Making - Radiology Data Radiology results: report reviewed Negative hip and femur films - Medical Decision Making Patient with pain over the left femur after a fall. No other injuries or complaints. Tenderness noted over the length of the femur on exam, intact pulses distally. X-rays are pending. [place] ordered for pain. - Differential Diagnosis Fracture, strain, contusion Critical care attestation.: If time is entered above; I have spent that time in minutes in the direct care of this critically ill patient, excluding procedure time. ED Disposition Clinical Impression: Contusion of left hip, initial encounter Disposition: TO HOME OR SELFCARE Is pt being admited?: No Condition: Good Instructions: Contusion Prescriptions: Cyclobenzaprine [Flexeril] 10 mg PO TID PRN #15 tablet PRN Reason: Muscle Spasm Referrals: PRIMARY CARE, [Primary Care Provider] - 3-5 Days ALEJANDRO MARTÍNEZ MD [Staff Physician] - 3-5 Days Time of Disposition: 15:00
--- NOTE | 2020-06-26 14:41 | XRay Report ---
LEFT FEMUR 2 VIEWS INDICATION: leg pain, need entire femur. COMPARISON: None. IMPRESSION: No acute osseous or soft tissue abnormality. Normal articulation at the hip and knee. Signer Name: Ej Vanessa Jr, MD Signed: 06/26/2020 2:37 PM Workstation Name: [id number]
[2020-06-26 15:43] VITALS: BP 131/82
== END 2020-06-26 15:43 | disposition home or self-care (01) ==
LOC: ED 11:45
DX: S70.02XA Contusion of left hip, initial encounter (principal); I10 Essential (primary) hypertension; K21.9 Gastro-esophageal reflux disease without esophagitis; M19.91 Primary osteoarthritis, unspecified site; Z79.899 Other long term (current) drug therapy; W18.2XXA Fall in (into) shower or empty bathtub, initial encounter; Y93.89 Activity, other specified; Y92.89 Other specified places as the place of occurrence of the external cause; Y99.8 Other external cause status